=== PATIENT | female | born 1955 | race Caucasian/White ===

== ENCOUNTER 2019-03-27 08:54 | Emergency (ER) | payer OTHER ==
[2019-03-27 09:00] VITALS: PULSE 82; RESP 18; TEMP 98.6
[2019-03-27] MEDS ORDERED: SODIUM CHLORIDE 0.9% 1,000 ML IV STA (09:34)
--- NOTE | 2019-03-27 09:38 | ED ---
Neuro HPI - General Chief Complaint: Neuro Symptoms/Deficit Stated Complaint: RT side numbness Time Seen by Provider: 03/27/19 09:15 Source: patient, RN notes reviewed, old records reviewed Mode of arrival: ambulatory Limitations: no limitations - History of Present Illness Is the patient presenting with stroke symptoms?: No Last Known Well Date: 03/27/19 Last Known Well Time: 01:59 -: week(s) Initial Comments: This is a 63-year-old female the ER for evaluation patient does say for evaluation regarding nonspecific neurological complaints. Does admit some anxiety over. He wakes up in the morning with numbness and tingling. To be right-sided no headaches or vision changes no other neurological complaints. No traumas. Patient has no medical history no high blood pressure normal cholesterol no diabetes and is nonsmoker. Location: right arm, right leg History of same: Yes Place: home Severity: moderate Quality: numb, tingling Improves With: none Worsens With: none On Anticoagulants: Yes Associated Symptoms: nausea/vomiting, other (anxiety) Treatments Prior to Arrival: none - Related Data Home Medications: Home Medications Medication Instructions Recorded Confirmed Aspirin EC [Ecotrin Low Dose] 81 mg PO DAILY 03/27/19 03/27/19 L.acidoph,Paracasei, B.lactis 1 cap PO DAILY 03/27/19 03/27/19 [Probiotic] Multivitamins, Thera [Multivitamin 1 tab PO DAILY 03/27/19 03/27/19 (formulary)] Naproxen Sodium [Aleve] 220 mg PO DAILY PRN 03/27/19 03/27/19 Allergies/Adverse Reactions: Allergies Allergy/AdvReac Type Severity Reaction Status Date / Time No Known Allergies Allergy Verified 03/27/19 09:27 Review of Systems ROS Statement: Those systems with pertinent positive or pertinent negative responses have been documented in the HPI. ROS Other: All systems not noted in ROS Statement are negative. General Exam - General Exam Comments Initial Comments: NIH of 0 Limitations: no limitations General appearance: alert, in no apparent distress Head exam: Present: atraumatic, normocephalic, normal inspection Eye exam: Present: normal appearance, PERRL, EOMI. Absent: scleral icterus, conjunctival injection, periorbital swelling ENT exam: Present: normal exam, mucous membranes moist Neck exam: Present: normal inspection. Absent: tenderness, meningismus, lymphadenopathy Respiratory exam: Present: normal lung sounds bilaterally. Absent: respiratory distress, wheezes, rales, rhonchi, stridor Cardiovascular Exam: Present: regular rate, normal rhythm, normal heart sounds. Absent: systolic murmur, diastolic murmur, rubs, gallop, clicks GI/Abdominal exam: Present: soft, normal bowel sounds. Absent: distended, tenderness, guarding, rebound, rigid Extremities exam: Present: normal inspection, full ROM, normal capillary refill. Absent: tenderness, pedal edema, joint swelling, calf tenderness Back exam: Present: normal inspection Neurological exam: Present: alert, oriented X3, CN II-XII intact Psychiatric exam: Present: normal affect, normal mood Skin exam: Present: warm, dry, intact, normal color. Absent: rash Stroke MDM - Lab Data Result diagrams: 03/27/19 09:20 03/27/19 09:20 Lab Results 03/27/19 03/27/19 03/27/19 Range/Units 09:20 09:20 09:20 WBC 9.8 (3.8-10.6) k/uL RBC 4.98 (3.80-5.40) m/uL Hgb 14.6 (11.4-16.0) gm/dL Hct 44.9 (34.0-46.0) % MCV 90.2 (80.0-100.0) fL MCH 29.3 (25.0-35.0) pg MCHC 32.5 (31.0-37.0) g/dL RDW 13.1 (11.5-15.5) % Plt Count 386 (150-450) k/uL Neutrophils % 80 % Lymphocytes % 14 % Monocytes % 4 % Eosinophils % 1 % Basophils % 0 % Neutrophils # 7.8 H (1.3-7.7) k/uL Lymphocytes # 1.4 (1.0-4.8) k/uL Monocytes # 0.3 (0-1.0) k/uL Eosinophils # 0.1 (0-0.7) k/uL Basophils # 0.0 (0-0.2) k/uL PT 10.9 (9.0-12.0) sec INR 1.0 (<1.2) APTT 26.2 (22.0-30.0) sec Sodium 143 (137-145) mmol/L Potassium 4.0 (3.5-5.1) mmol/L Chloride 108 H (98-107) mmol/L Carbon Dioxide 23 (22-30) mmol/L Anion Gap 12 mmol/L BUN 19 H (7-17) mg/dL Creatinine 0.72 (0.52-1.04) mg/dL Est GFR (CKD-EPI)AfAm >90 (>60 ml/min/1.73 sqM) Est GFR (CKD-EPI)NonAf 90 (>60 ml/min/1.73 sqM) Glucose 121 H (74-99) mg/dL Calcium 10.0 (8.4-10.2) mg/dL Total Bilirubin 0.6 (0.2-1.3) mg/dL AST 24 (14-36) U/L ALT 15 (9-52) U/L Alkaline Phosphatase 115 (38-126) U/L Creatine Kinase 95 (30-135) U/L Troponin I (0.000-0.034) ng/mL Total Protein 8.6 H (6.3-8.2) g/dL Albumin 4.6 (3.5-5.0) g/dL 03/27/19 Range/Units 09:20 WBC (3.8-10.6) k/uL RBC (3.80-5.40) m/uL Hgb (11.4-16.0) gm/dL Hct (34.0-46.0) % MCV (80.0-100.0) fL MCH (25.0-35.0) pg MCHC (31.0-37.0) g/dL RDW (11.5-15.5) % Plt Count (150-450) k/uL Neutrophils % % Lymphocytes % % Monocytes % % Eosinophils % % Basophils % % Neutrophils # (1.3-7.7) k/uL Lymphocytes # (1.0-4.8) k/uL Monocytes # (0-1.0) k/uL Eosinophils # (0-0.7) k/uL Basophils # (0-0.2) k/uL PT (9.0-12.0) sec INR (<1.2) APTT (22.0-30.0) sec Sodium (137-145) mmol/L Potassium (3.5-5.1) mmol/L Chloride (98-107) mmol/L Carbon Dioxide (22-30) mmol/L Anion Gap mmol/L BUN (7-17) mg/dL Creatinine (0.52-1.04) mg/dL Est GFR (CKD-EPI)AfAm (>60 ml/min/1.73 sqM) Est GFR (CKD-EPI)NonAf (>60 ml/min/1.73 sqM) Glucose (74-99) mg/dL Calcium (8.4-10.2) mg/dL Total Bilirubin (0.2-1.3) mg/dL AST (14-36) U/L ALT (9-52) U/L Alkaline Phosphatase (38-126) U/L Creatine Kinase (30-135) U/L Troponin I <0.012 (0.000-0.034) ng/mL Total Protein (6.3-8.2) g/dL Albumin (3.5-5.0) g/dL - NIH Stroke Scale 1a. Level of Consciousness: (0) alert 1b. LOC Questions: (0) answers correctly 1c. LOC Commands: (0) performs tasks correctly 2. Best Gaze: (0) normal 3. Visual: (0) no visual loss 4. Facial Palsy: (0) normal symmetrical movement 5a. Motor Arm Left: (0) no drift 5b. Motor Arm Right: (0) no drift 6a. Motor Leg Left: (0) no drift 6b. Motor Leg Right: (0) no drift 7. Limb Ataxia: (0) absent 8. Sensory: (0) normal 9. Best Language: (0) no aphasia 10. Dysarthria: (0) normal 11. Extinction/Inattention: (0) no abnormality - Thrombolytic Inclusion/Exclusion Thrombolytic Exclusion Criteria: Symptom Onset > 3 Hours Thrombolytic Inclusion Criteria: NIH Stroke Scale Deficit (0) Thrombolytic Contraindications: Rapidly Improving s/s (0) - Medical Decision Making 63 female the ER with nonspecific neurological complaints, paresthesias right- sided. Patient will follow-up with primary care for further evaluation and management, findings discussed with patient in detail, questions answered - Radiology Data Radiology results: report reviewed (CT brain negative for acute disease), image reviewed - EKG Data -: EKG Interpreted by Me (EKG shows sinus rhythm rate of 83, WI 140, QRS 82, QTc 448) Past Medical History Past Medical History: No Reported History History of Any Multi-Drug Resistant Organisms: None Reported Past Surgical History: Cholecystectomy, Hysterectomy Past Psychological History: No Psychological Hx Reported Smoking Status: Never smoker Past Alcohol Use History: None Reported Past Drug Use History: None Reported Course Vital Signs 03/27/19 03/27/19 08:56 11:13 Temperature 98.6 F Pulse Rate 82 82 Respiratory 18 18 Rate Blood Pressure 148/90 120/70 O2 Sat by Pulse 99 97 Oximetry - Reevaluation(s) Reevaluation #1: 03/27/19 11:36 Medical records reviewed Reevaluation #2: 03/27/19 11:36 Reevaluation continued to show no focal neurological deficit Disposition Clinical Impression: Paresthesia of right arm and leg Disposition: HOME SELF-CARE Condition: Good Instructions (If sedation given, give patient instructions): Paresthesia (ED) Is patient prescribed a controlled substance at d/c from ED?: No Referrals: None,Stated [Primary Care Provider] - 1-2 days
[2019-03-27 09:48] LABS: Basophils % (A) 0 %; Eosinophils # (A) 0.1 k/uL (0-0.7); Eosinophils % (A) 1 %; HCT 44.9 % (34.0-46.0); HGB 14.6 gm/dL (11.4-16.0); Lymphocytes # (A) 1.4 k/uL (1.0-4.8); Lymphocytes % (A) 14 %; MCH 29.3 pg (25.0-35.0); MCHC 32.5 g/dL (31.0-37.0); MCV 90.2 fL (80.0-100.0); Mean Platelet Volume 7.1; Monocytes # (A) 0.3 k/uL (0-1.0); Monocytes % (A) 4 %; Neutrophils # (A) 7.8 k/uL (1.3-7.7); Neutrophils % (A) 80 %; Platelet Count 386 k/uL (150-450); RBC 4.98 m/uL (3.80-5.40); RDW 13.1 % (11.5-15.5); WBC 9.8 k/uL (3.8-10.6)
[2019-03-27 09:57] LABS: Partial Thromboplastin Time 26.2 sec (22.0-30.0); Prothrombin Time 10.9 sec (9.0-12.0)
[2019-03-27 09:58] LABS: AST 24 U/L (14-36); African American GFR (CKD) >90 (>60 ml/min/1.73 sqM); Albumin 4.6 g/dL (3.5-5.0); Anion Gap 12 mmol/L; Blood Urea Nitrogen 19 mg/dL (7-17); Chloride 108 mmol/L (98-107); Total Bilirubin 0.6 mg/dL (0.2-1.3); Total Protein 8.6 g/dL (6.3-8.2)
--- NOTE | 2019-03-27 10:11 | CT ---
EXAMINATION TYPE: CT brain wo con for TPA DATE OF EXAM: 03/27/2019 COMPARISON: None INDICATION: Right arm numbness DLP: 1023.4 mGycm, Automated exposure control for dose reduction was used. CONTRAST: None CT of the brain is performed utilizing 3 mm thick sections through the posterior fossa and 3 mm thick sections through the remaining calvarium. Study is performed within 24 hours of arrival to the hosp ital. No abnormal hyperdensity is present to suggest an acute intracranial hemorrhage. No mass lesion is evident. No acute infarcts are evident. Minimal periventricular white matter hypodensity is present, likely on the basis of chronic white matter ischemic changes. Ventricles and sulci are appropriate for the patient age. Paranasal sinuses and mastoid air cells within the [id number] are clear. IMPRESSIONS: 1. Minimal periventricular white matter ischemic changes.
[2019-03-27 10:15] LABS: ALT 15 U/L (9-52); Alkaline Phosphatase 115 U/L (38-126); Carbon Dioxide 23 mmol/L (22-30); Creatine Kinase 95 U/L (30-135); Glucose 121 mg/dL (74-99); Sodium 143 mmol/L (137-145)
--- NOTE | 2019-03-27 10:20 | XR ---
EXAMINATION TYPE: XR chest 2V DATE OF EXAM: 03/27/2019 COMPARISON: None INDICATION: Altered mental status TECHNIQUE: Frontal and lateral views of the chest are obtained. FINDINGS: The heart size is normal. The pulmonary vasculature is normal. The lungs are clear. IMPRESSION: 1. No acute pulmonary process.
[2019-03-27 11:14] VITALS: BP 120/70
== END 2019-03-27 12:13 | disposition home or self-care (01) ==
LOC: EC 08:54
DX: R20.2 Paresthesia of skin (principal); F41.9 Anxiety disorder, unspecified; R11.2 Nausea with vomiting, unspecified; R20.0 Anesthesia of skin
CPT/HCPCS: 36415; 70450; 71046; 80053; 82550; 84484; 85025; 85610; 85730; 93005; 96360; 99285

== ENCOUNTER 2024-04-15 10:31 | Emergency (ER) | payer BC ==
[2024-04-15 11:06] VITALS: TEMP 97.5
--- NOTE | 2024-04-15 11:32 | ED ---
Dizziness HPI - General Chief Complaint: Dizziness Stated Complaint: Dizziness Time Seen by Provider: 04/15/24 11:29 Source: patient, RN notes reviewed Mode of arrival: wheelchair Limitations: no limitations - History of Present Illness Initial Comments: 68-year-old female presented to the ER with a chief complaint of dizziness. Patient states she woke up this morning extremely dizzy which has been progressively worsening throughout the day. She does have a remote history of vertigo. She states the dizziness is worse with moving her head from a downward to upward position. She states it feels like the room is spinning. She states when not moving her head she feels "lightheaded". She denies any chest pain, shortness of breath, nausea or vomiting. Patient has not taken anything for her symptoms at this time. No significant past medical history. Denies any recent fevers, cough, congestion, abdominal pain, constipation/diarrhea, urinary complaints or peripheral edema. - Related Data Home Medications Medication Instructions Recorded Confirmed Aspirin EC [Ecotrin Low Dose] 81 mg PO DAILY 03/27/19 04/15/24 L.acidoph,Paracasei, B.lactis 1 cap PO DAILY 03/27/19 04/15/24 [Probiotic] Multivitamins, Thera [Multivitamin 1 tab PO DAILY 03/27/19 04/15/24 (formulary)] Ascorbic Acid [Vitamin C] 1,000 mg PO DAILY 04/15/24 04/15/24 Elderberry Fruit [Elderberry] 350 mg PO DAILY 04/15/24 04/15/24 Magnesium 250 mg PO DAILY 04/15/24 04/15/24 Turmeric Root Extract [Turmeric] 500 mg PO DAILY 04/15/24 04/15/24 Vitamin B Complex 1 cap PO DAILY 04/15/24 04/15/24 Allergies Allergy/AdvReac Type Severity Reaction Status Date / Time No Known Allergies Allergy Verified 04/15/24 13:31 Review of Systems ROS Statement: Those systems with pertinent positive or pertinent negative responses have been documented in the HPI. ROS Other: All systems not noted in ROS Statement are negative. Past Medical History Past Medical History: No Reported History History of Any Multi-Drug Resistant Organisms: None Reported Past Surgical History: Cholecystectomy, Hysterectomy Past Psychological History: No Psychological Hx Reported Smoking Status: Never smoker Past Alcohol Use History: None Reported Past Drug Use History: None Reported General Exam Limitations: no limitations General appearance: alert, in no apparent distress, other (mild resting tremor present) Eye exam: Present: normal appearance, PERRL, EOMI. Absent: scleral icterus, conjunctival injection, periorbital swelling Pupils: Present: normal accommodation (4mm bilaterally) ENT exam: Present: normal exam, normal oropharynx, mucous membranes moist, TM's normal bilaterally Respiratory exam: Present: normal lung sounds bilaterally. Absent: respiratory distress, wheezes, rales, rhonchi, stridor Cardiovascular Exam: Present: regular rate, normal rhythm, normal heart sounds. Absent: systolic murmur, diastolic murmur, rubs, gallop, clicks GI/Abdominal exam: Present: soft, normal bowel sounds. Absent: distended, tenderness, guarding, rebound, rigid Extremities exam: Present: normal inspection, full ROM, normal capillary refill. Absent: tenderness, pedal edema, joint swelling, calf tenderness Neurological exam: Present: alert, oriented X3, CN II-XII intact, other (Bi lateral upper and lower extremity strengths 5+) Skin exam: Present: warm, dry, intact, normal color. Absent: rash Course Vital Signs 04/15/24 04/15/24 04/15/24 11:03 14:46 14:48 Temperature 97.5 F L Pulse Rate 76 86 Pulse Rate [ 86 Curbing Stonecutter ] Pulse Rate [ 104 H Standing Curbing Stonecutter ] Respiratory 16 18 18 Rate Blood Pressure 152/82 119/83 Blood Pressure 116/83 [Right Arm Standing] Blood Pressure 119/83 [Right Arm Supine] O2 Sat by Pulse 100 97 98 Oximetry 04/15/24 15:22 Temperature Pulse Rate 65 Pulse Rate [ Curbing Stonecutter ] Pulse Rate [ Standing Curbing Stonecutter ] Respiratory 18 Rate Blood Pressure 126/78 Blood Pressure [Right Arm Standing] Blood Pressure [Right Arm Supine] O2 Sat by Pulse 98 Oximetry Medical Decision Making - Medical Decision Making Was pt. sent in by a medical professional or institution (, PA, STAPLE FIBER WASHER, urgent care, hospital, or senior care...) When possible be specific @ -No Did you speak to anyone other than the patient for history (EMS, parent, family, police, friend...)? What history was obtained from this source @ -No Did you review nursing and triage notes (agree or disagree)? Why? @ -I reviewed and agree with nursing and triage notes Were old charts reviewed (outside hosp., previous admission, EMS record, old EKG, old radiological studies, urgent care reports/EKG's, senior care records)? Report findings @ -No old charts were reviewed Differential Diagnosis (chest pain, altered mental status, abdominal pain women, abdominal pain men, vaginal bleeding, weakness, fever, dyspnea, syncope, headache, dizziness, GI bleed, back pain, seizure, CVA, palpatations, mental health, musculoskeletal)? @ -Differential Dizziness: Benign paroxysmal positional Vertigo, Meniere's disease, otitis media, acoustic neuroma, vertebrobasilar insufficiency, cerebellar stroke, encephalitis, hypovolemic, arrhythmia, coronary artery syndrome, anemia, this is not meant to be an all-inclusive list EKG interpreted by me (3pts min.). @ -As above X-rays interpreted by me (1pt min.). @ -Chest x-ray interpreted by me negative for acute cardiopulmonary process. CT interpreted by me (1pt min.). @ -CT brain negative for acute intracranial process. U/S interpreted by me (1pt. min.). @ -None done What testing was considered but not performed or refused? (CT, X-rays, U/S, labs)? Why? @ -None What meds were considered but not given or refused? Why? @ -None Did you discuss the management of the patient with other professionals (professionals i.e. , PA, STAPLE FIBER WASHER, lab, RT, psych nurse, social media specialist, cushion sewer, teacher, chief contract officer, telehealth case manager)? Give summary @ -No Was smoking cessation discussed for >3mins.? @ -No Was critical care preformed (if so, how long)? @ -No Were there social determinants of health that impacted care today? How? (Homelessness, low income, unemployed, alcoholism, drug addiction, transportation, low edu. Level, literacy, decrease access to med. care, snf, r ehab)? @ -Patient does not follow-up with a primary care physician. Was there de-escalation of care discussed even if they declined (Discuss DNR or withdrawal of care, Hospice)? DNR status @ -No What co-morbidities impacted this encounter? (DM, HTN, Smoking, COPD, CAD, Cancer, CVA, ARF, Chemo, Hep., AIDS, mental health diagnosis, sleep apnea, morbid obesity)? @ -None Was patient admitted / discharged? Hospital course, mention meds given and route, prescriptions, significant lab abnormalities, going to OR and other pertinent info. @ -Discharge. 68-year-old female presented the ER with a chief complaint of dizziness. History and physical exam completed. Vitals within normal limits. Patient in no signs of acute distress. No acute neurological findings on exam. Patient did have a mild resting tremor noted otherwise exam unremarkable. Laboratory studies obtained unimpressive. Troponin undetectable. Chest x-ray negative for acute cardiopulmonary process. Brain CT negative. Orthostatic vitals with appropriate changes. Patient received IV fluids and p.o. meclizine with improvement of symptoms. EKG showing sinus rhythm with artifact present. Artifact believed to be due to from resting tremor and vital signs have remained stable. Patient has also remained in normal sinus rhythm during examination and while on personnel monitor. Dizziness suspected to be vertigo as negative workup, hx of vertigo and worse with positional changes. Upon reevaluation, patient re sting comfortably in exam room in no signs of acute distress. Discussed with patient, all questions answered. Meclizine prescribed. Advise close follow-up with PCP, referrals given. Advise follow-up with ENT, referral given. Return parameters discussed. Patient discharged in stable condition. Expressed understanding and agreed with care plan. Case discussed with ED attending, Dr. Chaney. Undiagnosed new problem with uncertain prognosis? @ -No Drug Therapy requiring intensive monitoring for toxicity (Heparin, Nitro, Insulin, Cardizem)? @ -No Were any procedures done? @ -No Diagnosis/symptom? @ -Dizziness Acute, or Chronic, or Acute on Chronic? @ -acute Uncomplicated (without systemic symptoms) or Complicated (systemic symptoms)? @ -uncomplicated Side effects of treatment? @ -No Exacerbation, Progression, or Severe Exacerbation? @ -No Poses a threat to life or bodily function? How? (Chest pain, USA, VT, pneumonia, PE, COPD, DKA, ARF, appy, cholecystitis, CVA, Diverticulitis, Homicidal, Suicidal, threat to staff... and all critical care pts) @ -No - Lab Data Result diagrams: 04/15/24 12:24 04/15/24 12:24 Lab Results 04/15/24 04/15/24 04/15/24 Range/Units 12:24 12:24 12:24 WBC 8.2 (3.8-10.6) k/uL RBC 4.74 (3.80-5.40) m/uL Hgb 14.5 (11.4-16.0) gm/dL Hct 43.2 (34.0-46.0) % MCV 91.2 (80.0-100.0) fL MCH 30.6 (25.0-35.0) pg MCHC 33.5 (31.0-37.0) g/dL RDW 12.9 (11.5-15.5) % Plt Count 344 (150-450) k/uL MPV 7.5 Neutrophils % 82 % Lymphocytes % 13 % Monocytes % 3 % Eosinophils % 1 % Basophils % 1 % Neutrophils # 6.8 (1.3-7.7) k/uL Lymphocytes # 1.0 (1.0-4.8) k/uL Monocytes # 0.2 (0-1.0) k/uL Eosinophils # 0.1 (0-0.7) k/uL Basophils # 0.0 (0-0.2) k/uL PT 10.8 (10.0-12.5) sec INR 1.0 (<1.2) APTT 25.9 (22.0-30.0) sec Sodium 141 (137-145) mmol/L Potassium 3.8 (3.5-5.1) mmol/L Chloride 111 H (98-107) mmol/L Carbon Dioxide 22 (22-30) mmol/L Anion Gap 8 mmol/L BUN 17 (7-17) mg/dL Creatinine 0.51 L (0.52-1.04) mg/dL Est GFR (CKD-EPI)AfAm >90 (>60 ml/min/1.73 sqM) Est GFR (CKD-EPI)NonAf >90 (>60 ml/min/1.73 sqM) Glucose 104 H (74-99) mg/dL Plasma Lactic Acid Juan Antonio (0.7-2.0) mmol/L Calcium 10.1 (8.4-10.2) mg/dL Total Bilirubin 0.8 (0.2-1.3) mg/dL AST 29 (14-36) U/L ALT 19 (4-34) U/L Alkaline Phosphatase 109 (38-126) U/L Troponin I (0.000-0.034) ng/mL Total Protein 8.2 (6.3-8.2) g/dL Albumin 4.6 (3.5-5.0) g/dL 04/15/24 04/15/24 Range/Units 12:24 12:24 WBC (3.8-10.6) k/uL RBC (3.80-5.40) m/uL Hgb (11.4-16.0) gm/dL Hct (34.0-46.0) % MCV (80.0-100.0) fL MCH (25.0-35.0) pg MCHC (31.0-37.0) g/dL RDW (11.5-15.5) % Plt Count (150-450) k/uL MPV Neutrophils % % Lymphocytes % % Monocytes % % Eosinophils % % Basophils % % Neutrophils # (1.3-7.7) k/uL Lymphocytes # (1.0-4.8) k/uL Monocytes # (0-1.0) k/uL Eosinophils # (0-0.7) k/uL Basophils # (0-0.2) k/uL PT (10.0-12.5) sec INR (<1.2) APTT (22.0-30.0) sec Sodium (137-145) mmol/L Potassium (3.5-5.1) mmol/L Chloride (98-107) mmol/L Carbon Dioxide (22-30) mmol/L Anion Gap mmol/L BUN (7-17) mg/dL Creatinine (0.52-1.04) mg/dL Est GFR (CKD-EPI)AfAm (>60 ml/min/1.73 sqM) Est GFR (CKD-EPI)NonAf (>60 ml/min/1.73 sqM) Glucose (74-99) mg/dL Plasma Lactic Acid Juan Antonio 1.2 (0.7-2.0) mmol/L Calcium (8.4-10.2) mg/dL Total Bilirubin (0.2-1.3) mg/dL AST (14-36) U/L ALT (4-34) U/L Alkaline Phosphatase (38-126) U/L Troponin I <0.012 (0.000-0.034) ng/mL Total Protein (6.3-8.2) g/dL Albumin (3.5-5.0) g/dL - EKG Data -: EKG Interpreted by Me EKG Comments: EKG taken at 12: 09 showing a sinus rhythm with no acute ST segment or T wave abnormalities. Artifact is present. Left axis deviation. Ventricular rate 75, IN interval 149, QRS duration 83, QT/QTc 388/417. - Radiology Data Radiology results: report reviewed, image reviewed Disposition Clinical Impression: Dizziness Disposition: HOME SELF-CARE Condition: Stable Instructions (If sedation given, give patient instructions): Dizziness (ED) Additional Instructions: Please follow-up with PCP. I also recommend follow-up with ENT for further evaluation. Return to the ER for any new or worsening concerns including nausea, vomiting, uncontrolled symptoms, chest pain or shortness of breath. Is patient prescribed a controlled substance at d/c from ED?: No Referrals: None,Stated [Primary Care Provider] - 1-2 days Roshan Schwartz MD [STAFF PHYSICIAN] - 1-2 days Forms: Area PCPs Time of Disposition: 15:13
[2024-04-15] MEDS: MECLIZINE 12.5 MG TAB PO STA (12:27)
[2024-04-15] MEDS: SODIUM CHLORIDE 0.9% 1,000 ML IV STA (12:27)
[2024-04-15 12:43] LABS: Basophils % (A) 1 %; Eosinophils # (A) 0.1 k/uL (0-0.7); Eosinophils % (A) 1 %; HCT 43.2 % (34.0-46.0); HGB 14.5 gm/dL (11.4-16.0); Lymphocytes % (A) 13 %; MCH 30.6 pg (25.0-35.0); MCHC 33.5 g/dL (31.0-37.0); MCV 91.2 fL (80.0-100.0); Mean Platelet Volume 7.5; Monocytes # (A) 0.2 k/uL (0-1.0); Monocytes % (A) 3 %; Neutrophils # (A) 6.8 k/uL (1.3-7.7); Neutrophils % (A) 82 %; Platelet Count 344 k/uL (150-450); RBC 4.74 m/uL (3.80-5.40); RDW 12.9 % (11.5-15.5); WBC 8.2 k/uL (3.8-10.6)
[2024-04-15 12:53] LABS: Partial Thromboplastin Time 25.9 sec (22.0-30.0); Prothrombin Time 10.8 sec (10.0-12.5)
[2024-04-15 13:12] LABS: ALT 19 U/L (4-34); AST 29 U/L (14-36); African American GFR (CKD) >90 (>60 ml/min/1.73 sqM); Albumin 4.6 g/dL (3.5-5.0); Alkaline Phosphatase 109 U/L (38-126); Anion Gap 8 mmol/L; Blood Urea Nitrogen 17 mg/dL (7-17); Calcium 10.1 mg/dL (8.4-10.2); Carbon Dioxide 22 mmol/L (22-30); Chloride 111 mmol/L (98-107); Glucose 104 mg/dL (74-99); Non-African American GFR(CKD) >90 (>60 ml/min/1.73 sqM); Potassium 3.8 mmol/L (3.5-5.1); Sodium 141 mmol/L (137-145); Total Bilirubin 0.8 mg/dL (0.2-1.3); Total Protein 8.2 g/dL (6.3-8.2)
--- NOTE | 2024-04-15 13:37 | XR ---
EXAMINATION TYPE: XR chest 2V DATE OF EXAM: 04/15/2024 COMPARISON: 03/27/2019 HISTORY: 68-year-old female dizziness TECHNIQUE: AP and lateral views FINDINGS: Heart normal size. Aorta and pulmonary vasculature within normal limits. No consolidation or pleural effusion. IMPRESSION: No acute cardiopulmonary process.
--- NOTE | 2024-04-15 14:28 | CT ---
EXAMINATION TYPE: CT brain wo con CT DLP: 1113.4 mGycm, Automated exposure control for dose reduction was used. DATE OF EXAM: 04/15/2024 2:07 PM COMPARISON: 03/27/2019. CLINICAL INDICATION: Female, 68 years old with history of dizziness, TECHNIQUE: Brain: Axial CT images of the brain were obtained with coronal and sagittal reformats created and rev iewed. Contrast used: None. Oral contrast used: None. FINDINGS: Brain: Extra-axial spaces: No abnormal extra-axial fluid collections. Ventricular system: Within normal limits Cerebral parenchyma: No acute intraparenchymal hemorrhage or mass effect. The thakur-white junction is well differentiated. Cerebellum: Unremarkable. Mass effect: No evidence of midline shift. Intracranial vasculature: Atherosclerotic calcifications of the intracranial vessels. Soft tissues: Normal. Calvarium/osseous structures: No depressed skull fracture. Paranasal sinuses and mastoid air cells: Mild scattered paranasal sinus disease. Visualized orbits: Orbital contents are intact. IMPRESSION: No acute intracranial process.
[2024-04-15 14:49] VITALS: RESP 18
[2024-04-15 15:25] VITALS: BP 126/78; PULSE 65
== END 2024-04-15 15:24 | disposition home or self-care (01) ==
LOC: EC 10:31
DX: R42 Dizziness and giddiness (principal)
CPT/HCPCS: 36415; 70450; 71046; 80053; 83605; 84484; 85025; 85610; 85730; 93005; 96360; 96361; 99284